=== PATIENT | male | born 1960 | race African-American/Black ===

== ENCOUNTER 2020-09-15 16:23 | Emergency (ER) | payer SELFPAY ==
[~2020-09-15] VITALS: Ht 172.7 cm; Wt 82.0 kg
[~2020-09-15 16:23] MED LIST: MOME13HF INH
[2020-09-15] MEDS ORDERED: BACITRACIN ZINC OINT UDPKT TOP ONE (17:15)
[2020-09-15] MEDS ORDERED: TETANUS, DIPHTHERIA, PERTUSSIS VAC/PF 0.5ML (>7YR OLD) IM ONE (17:15)
[2020-09-15] MEDS ORDERED: LIDOCAINE HCL/PF 1% 10 MG/ML 5ML VIAL IJ ONE (17:15)
[2020-09-15] MEDS ORDERED: CLINDAMYCIN 600 MG in DEXTROSE 5% WATER 50 ML IV ONE (18:00)
[2020-09-15] MEDS ORDERED: MORPHINE SULFATE 4 MG/ML CPJ (NOT FOR IM USE) IV ONE (20:15)
[2020-09-15 20:34] VITALS: BP 157/87
== END 2020-09-15 21:31 | disposition home or self-care (01) ==
LOC: ER 16:23
DX: S62.633B Displaced fracture of distal phalanx of left middle finger, initial encounter for open fracture (principal); S61.211A Laceration without foreign body of left index finger without damage to nail, initial encounter; S61.215A Laceration without foreign body of left ring finger without damage to nail, initial encounter; Z88.0 Allergy status to penicillin; Z91.040 Latex allergy status; Z88.8 Allergy status to other drugs, medicaments and biological substances; Z79.899 Other long term (current) drug therapy; W26.8XXA Contact with other sharp object(s), not elsewhere classified, initial encounter; Y93.89 Activity, other specified; Y92.89 Other specified places as the place of occurrence of the external cause; Y99.8 Other external cause status
CPT/HCPCS: 12004; 73130; 90471; 90715; 96365; 96375; 99284; J2270; J3490; J7060; Z7610

== ENCOUNTER 2023-09-04 19:42 | Emergency (ER) | payer MEDICAID ==
[~2023-09-04] VITALS: Ht 177.8 cm; Wt 65.0 kg
[~2023-09-04 19:42] MED LIST changes: -MOME13HF INH; +MOME13HF11 INH
[2023-09-04 19:47] VITALS: TEMP 98.2; O2SAT 99
[2023-09-04] MEDS ORDERED: CEPH500T MT (21:39)
[2023-09-04 22:30] VITALS: BP 146/78; PULSE 82; RESP 16
[2023-09-04] MEDS ORDERED: OXYCODONE HCL/ACETAMINOPHEN 5/325MG TABLET PO ONE (22:30)
== END 2023-09-04 23:09 | disposition home or self-care (01) ==
LOC: ER 20:08
DX: S02.2XXA Fracture of nasal bones, initial encounter for closed fracture (principal); S02.832A Fracture of medial orbital wall, left side, initial encounter for closed fracture; J45.909 Unspecified asthma, uncomplicated; Z88.0 Allergy status to penicillin; Y08.89XA Assault by other specified means, initial encounter; Y93.89 Activity, other specified; Y92.89 Other specified places as the place of occurrence of the external cause; Y99.8 Other external cause status
CPT/HCPCS: 70486; 99284